=== PATIENT | male | born 1990 | race Caucasian/White ===

== ENCOUNTER 2016-11-26 07:04 | Emergency (ER) | payer OTHER, MEDICAID ==
[~2016-11-26] VITALS: Ht 188 cm; Wt 97.5 kg
[~2016-11-26 07:04] MED LIST: DIPH50TA9 PO; ESCI10TA53 PO; LAMO100T44 PO; PALI3TAB3 PO
[2016-11-26 07:35] VITALS: BP 162/110
== END 2016-11-26 07:55 | disposition home or self-care (01) ==
LOC: EDBD 07:04 → ER 07:04 → EDUNIT# 07:04 → ER 07:55
DX: F31.9 Bipolar disorder, unspecified (principal); F20.9 Schizophrenia, unspecified; G47.00 Insomnia, unspecified; I10 Essential (primary) hypertension

== ENCOUNTER 2016-11-26 10:35 | Emergency (ER) | payer OTHER, MEDICAID ==
[~2016-11-26] VITALS: Ht 182.9 cm; Wt 90.7 kg
[2016-11-26 10:44] VITALS: BP 148/86
== END 2016-11-26 12:44 | disposition home or self-care (01) ==
LOC: ER 10:35 → EDBD 10:35 → EDUNIT# 10:35 → ER 12:44
DX: F25.9 Schizoaffective disorder, unspecified (principal); I10 Essential (primary) hypertension; Z88.1 Allergy status to other antibiotic agents; F31.9 Bipolar disorder, unspecified

== ENCOUNTER 2017-01-12 23:54 | Emergency (ER) | payer OTHER, MEDICAID ==
[~2017-01-12] VITALS: Ht 182.9 cm; Wt 90.7 kg
[2017-01-13 00:49] VITALS: BP 122/89
[2017-01-13 01:24] LABS: Basophils # (auto) 0.1 uL; Basophils % (auto) 0.9 % (0.0-2.0); Eosinophils # (auto) 0.3 uL; Eosinophils % (auto) 1.8 % (0.0-7.0); Hematocrit 45.8 % (41.0-53.0); Hemoglobin 15.6 g/dL (13.5-17.5); Lymphocytes % (auto) 26.9 % (10.0-50.0); Mean Corpuscular Volume 88.3 fL (80.0-100.0); Mean Platelet Volume 7.4 fL (6.9-10.8); Monocytes # (auto) 1.5 uL; Monocytes % (auto) 10.2 % (0.0-12.0); Neutrophils % (auto) 60.2 % (37.0-80.0); Platelet Count (auto) 302 10^3/uL (140-450); Red Cell Distribution Width 13.1 % (11.8-14.3); White Blood Cell 14.9 10^3/uL (4.4-10.8)
[2017-01-13 01:41] LABS: Acetaminophen < 2.0 ug/mL (10-30); BUN/Creatinine Ratio 5.1; Calcium 8.4 mg/dL (8.5-10.1); Potassium 3.5 mmol/L (3.5-5.1); Salicylate < 1.7 mg/dL (2.8-20.0)
[2017-01-13 01:44] LABS: Bilirubin, Total 0.5 mg/dL (0.2-1.0)
[2017-01-13 02:15] LABS: Urine RBC None Seen /hpf (0 - 3)
[2017-01-13 02:33] LABS: Urine Bilirubin Negative (Negative); Urine Blood Negative /uL (Negative); Urine Color Yellow (Yellow); Urine Glucose Normal (Normal); Urine Ketone TRACE (Negative); Urine Nitrite Negative (Negative); Urine Urobilinogen Normal (Negative); Urine pH 5.5 (5.0-8.0)
[2017-01-14] MEDS ORDERED: TRAZ100T2 PO (15:40)
[2017-01-14] MEDS ORDERED: OLAN20TA13 PO (15:40)
[2017-01-14] MEDS ORDERED: ESCI10TA PO (15:40)
== END 2017-01-13 02:18 | disposition left against medical advice (07) ==
LOC: ER 23:56
DX: F41.9 Anxiety disorder, unspecified (principal); F32.9 Major depressive disorder, single episode, unspecified; Z53.21 Procedure and treatment not carried out due to patient leaving prior to being seen by health care provider
CPT/HCPCS: 36415; 80053; 80307; 80320; 80329; 81001; 85025

== ENCOUNTER 2017-01-13 04:08 | Emergency (ER) | payer OTHER, MEDICAID ==
[~2017-01-13] VITALS: Ht 182.9 cm; Wt 90.7 kg
[2017-01-13 05:57] VITALS: BP 115/60
[2017-01-13 07:35] LABS: Basophils # (auto) 0.1 uL; Eosinophils # (auto) 0.5 uL; Hematocrit 42.7 % (41.0-53.0); Hemoglobin 14.5 g/dL (13.5-17.5); Lymphocytes # (auto) 2.9 uL; Lymphocytes % (auto) 22.8 % (10.0-50.0); Mean Corpuscular Hemoglobin 29.6 pg (28.0-32.0); Mean Corpuscular Volume 87.1 fL (80.0-100.0); Mean Platelet Volume 7.2 fL (6.9-10.8); Monocytes # (auto) 1.4 uL; Monocytes % (auto) 11.1 % (0.0-12.0); Neutrophils # (auto) 7.7 uL; Neutrophils % (auto) 61.1 % (37.0-80.0); Platelet Count (auto) 274 10^3/uL (140-450); Red Cell Distribution Width 13.1 % (11.8-14.3); White Blood Cell 12.6 10^3/uL (4.4-10.8)
[2017-01-13 07:56] LABS: Albumin 3.6 g/dL (3.4-5.0); Anion Gap 9 (5-15); Aspartate Aminotransferase 28 U/L (15-37); BUN/Creatinine Ratio 6.2; Blood Urea Nitrogen 6 mg/dL (7-18); Calcium 8.1 mg/dL (8.5-10.1); Carbon Dioxide 24 mmol/L (21-32); Chloride 106 mmol/L (98-107); GFR African American 121 mL/min; GFR Non-African American 100 mL/min; Glucose 95 mg/dL (74-106); Potassium 3.8 mmol/L (3.5-5.1); Sodium 139 mmol/L (136-145)
[2017-01-13 08:01] LABS: Alkaline Phosphatase 83 U/L (45-117); Bilirubin, Total 0.5 mg/dL (0.2-1.0); Total Protein 7.2 g/dL (6.4-8.2)
[2017-01-13 08:43] LABS: Urine Bilirubin Negative (Negative); Urine Blood Negative /uL (Negative); Urine Color Yellow (Yellow); Urine Glucose Normal (Normal); Urine Ketone TRACE (Negative); Urine Mucus FEW (None Seen); Urine Nitrite Negative (Negative); Urine RBC 1 /hpf (0 - 3); Urine Squamous Epithelial Cell FEW /hpf (<5); Urine Urobilinogen Normal (Negative); Urine pH 5.5 (5.0-8.0)
[2017-01-14] MEDS ORDERED: ESCI10TA PO (15:40)
[2017-01-14] MEDS ORDERED: TRAZ100T2 PO (15:40)
[2017-01-14] MEDS ORDERED: OLAN20TA13 PO (15:40)
== END 2017-01-13 08:48 | disposition left against medical advice (07) ==
LOC: ER 04:10
DX: F41.9 Anxiety disorder, unspecified (principal); M79.1 Myalgia; I10 Essential (primary) hypertension; F31.9 Bipolar disorder, unspecified; F20.9 Schizophrenia, unspecified; F17.210 Nicotine dependence, cigarettes, uncomplicated
CPT/HCPCS: 36415; 80053; 81001; 84484; 85025

== ENCOUNTER 2017-01-14 14:49 | Emergency (ER) | payer OTHER, MEDICAID ==
[2017-01-14] MEDS ORDERED: HALOPERIDOL LACTATE 5 MG/ML INJ VIAL IM ONE (15:15)
[2017-01-14] MEDS ORDERED: LORazepam 2MG/ML-1ML VIAL IV ONE (15:15)
[2017-01-14] MEDS ORDERED: diphenhdrAMINE HCL 50 MG/1 ML VL IV ONE (15:15)
[2017-01-14] MEDS ORDERED: ESCI10TA PO (15:40)
[2017-01-14] MEDS ORDERED: OLAN20TA13 PO (15:40)
[2017-01-14] MEDS ORDERED: TRAZ100T2 PO (15:40)
[2017-01-14 15:58] LABS: Basophils # (auto) 0.2 uL; Eosinophils # (auto) 0.2 uL; Eosinophils % (auto) 1.3 % (0.0-7.0); Hematocrit 45.5 % (41.0-53.0); Hemoglobin 15.1 g/dL (13.5-17.5); Lymphocytes # (auto) 3.5 uL; Lymphocytes % (auto) 19.8 % (10.0-50.0); Mean Corpuscular Hemoglobin 29.4 pg (28.0-32.0); Mean Corpuscular Hgb Conc. 33.2 g/dL (32.0-36.0); Mean Corpuscular Volume 88.6 fL (80.0-100.0); Mean Platelet Volume 7.4 fL (6.9-10.8); Monocytes # (auto) 1.7 uL; Monocytes % (auto) 9.7 % (0.0-12.0); Neutrophils % (auto) 68.2 % (37.0-80.0); Nucleated Red Blood Cells % 0.1 %; Platelet Count (auto) 289 10^3/uL (140-450); Red Cell Distribution Width 13.2 % (11.8-14.3); White Blood Cell 17.6 10^3/uL (4.4-10.8)
[2017-01-14 16:09] LABS: Albumin 4.2 g/dL (3.4-5.0); Alkaline Phosphatase 93 U/L (45-117); Anion Gap 11 (5-15); Aspartate Aminotransferase 31 U/L (15-37); BUN/Creatinine Ratio 9.5; Bilirubin, Total 0.7 mg/dL (0.2-1.0); Blood Urea Nitrogen 12 mg/dL (7-18); Calcium 8.3 mg/dL (8.5-10.1); Carbon Dioxide 22 mmol/L (21-32); Chloride 108 mmol/L (98-107); GFR African American 90 mL/min; GFR Non-African American 74 mL/min; Glucose 102 mg/dL (74-106); Magnesium 2.5 mg/dL (1.6-2.6); Potassium 3.4 mmol/L (3.5-5.1); Sodium 141 mmol/L (136-145); Total Protein 7.7 g/dL (6.4-8.2)
[2017-01-14 16:16] LABS: Acetaminophen 36.6 ug/mL (10-30); Salicylate 2.2 mg/dL (2.8-20.0)
[2017-01-14 22:10] LABS: Urine RBC None Seen /hpf (0 - 3)
[2017-01-14 22:37] LABS: Albumin 3.6 g/dL (3.4-5.0); BUN/Creatinine Ratio 10.5; Calcium 8.3 mg/dL (8.5-10.1); Potassium 3.4 mmol/L (3.5-5.1)
[2017-01-14 22:38] LABS: Urine Bilirubin Negative (Negative); Urine Blood Negative /uL (Negative); Urine Color Yellow (Yellow); Urine Glucose Normal (Normal); Urine Ketone Negative (Negative); Urine Nitrite Negative (Negative); Urine Urobilinogen Normal (Negative); Urine pH 5.5 (5.0-8.0)
[2017-01-14 22:40] LABS: Bilirubin, Total 0.9 mg/dL (0.2-1.0); Total Protein 6.8 g/dL (6.4-8.2)
[2017-01-14 23:34] VITALS: BP 131/57
== END 2017-01-14 23:34 | disposition home or self-care (01) ==
LOC: ER 14:49 → EDBD 14:49 → ER 23:34
DX: G92 Toxic encephalopathy (principal); I10 Essential (primary) hypertension; Z88.0 Allergy status to penicillin; F17.210 Nicotine dependence, cigarettes, uncomplicated
CPT/HCPCS: 36415; 80053; 80307; 80320; 80329; 81001; 83735; 85025; 94761; 96372; 96374; 96375; 99285; J1200; J1630

== ENCOUNTER 2017-01-15 19:50 | Emergency (ER) | payer OTHER, MEDICAID ==
[~2017-01-15] VITALS: Ht 180.3 cm; Wt 99.8 kg
[~2017-01-15 19:50] MED LIST changes: +ESCI10TA PO; +OLAN20TA13 PO; +TRAZ100T2 PO
[2017-01-15 21:05] VITALS: BP 126/70
== END 2017-01-15 22:05 | disposition left against medical advice (07) ==
LOC: EDBD 19:50 → ER 20:08
DX: Z04.8 Encounter for examination and observation for other specified reasons (principal); Z53.21 Procedure and treatment not carried out due to patient leaving prior to being seen by health care provider

== ENCOUNTER 2017-04-03 12:12 | Inpatient (IN) | payer OTHER, MEDICAID ==
[~2017-04-03] VITALS: Ht 175.3 cm; Wt 90.7 kg
[2017-04-03] MEDS ORDERED: SODIUM CHLORIDE 0.9% 1,000 ML IVB ONE (12:22)
[2017-04-03 12:53] LABS: Basophils # (auto) 0.1 uL; Basophils % (auto) 0.7 % (0.0-2.0); Eosinophils # (auto) 0.1 uL; Eosinophils % (auto) 1.4 % (0.0-7.0); Hematocrit 48.6 % (41.0-53.0); Hemoglobin 16.5 g/dL (13.5-17.5); Lymphocytes # (auto) 2.4 uL; Lymphocytes % (auto) 24.7 % (10.0-50.0); Mean Corpuscular Hemoglobin 30.5 pg (28.0-32.0); Mean Corpuscular Volume 89.8 fL (80.0-100.0); Monocytes # (auto) 0.6 uL; Monocytes % (auto) 6.5 % (0.0-12.0); Neutrophils # (auto) 6.6 uL; Neutrophils % (auto) 66.7 % (37.0-80.0); Nucleated Red Blood Cells % 0.2 %; Platelet Count (auto) 342 10^3/uL (140-450); Red Blood Cells 5.41 10^6/uL (4.5-5.90); Red Cell Distribution Width 13.8 % (11.8-14.3); White Blood Cell 9.9 10^3/uL (4.4-10.8)
[2017-04-03 13:07] LABS: Albumin 4.3 g/dL (3.4-5.0); BUN/Creatinine Ratio 12.4; Calcium 8.6 mg/dL (8.5-10.1); Magnesium 2.3 mg/dL (1.6-2.6); Potassium 3.6 mmol/L (3.5-5.1)
[2017-04-03 13:10] LABS: Bilirubin, Total 0.3 mg/dL (0.2-1.0); Total Protein 8.2 g/dL (6.4-8.2)
[2017-04-03] MEDS ORDERED: LORazepam 2MG/ML-1ML VIAL IV ONE ×2 (16:00→17:00)
[2017-04-03] MEDS ORDERED: diphenhdrAMINE HCL 50 MG/1 ML VL IV ONE (16:00)
[2017-04-03] MEDS ORDERED: THIAMINE HCL 100 MG/ML 2ML VIAL IV ONE (17:00)
[2017-04-03] MEDS ORDERED: DEXTROSE (50%) 50ML SYRG IV PRN (17:00)
[2017-04-03] MEDS ORDERED: LORazepam 2MG/ML-1ML VIAL IV PRN (17:00)
[2017-04-03] MEDS ORDERED: PROMETHAZINE HCL 25 MG/ML 1ML IV PRN (17:00)
[2017-04-03] MEDS ORDERED: chlordiazePOXIDE HCL 25 MG CAP PO PRN (17:00)
[2017-04-03] MEDS ORDERED: TEMAZEPAM 15 MG CAP PO PRN (17:00)
[2017-04-03] MEDS ORDERED: MORPHINE SULFATE 4 MG/ML SYR/VIAL IV PRN ×2 (17:00)
[2017-04-03] MEDS ORDERED: NITROGLYCERIN 0.4 MG SL TAB SL PRN (17:00)
[2017-04-03] MEDS ORDERED: ACETAMINOPHEN 500 MG TAB PO PRN (17:00)
[2017-04-03] MEDS ORDERED: HYDROcodone-ACET 5/325MG TAB PO PRN (17:00)
[2017-04-03 17:25] LABS: Amphetamine Screen, Urine NEGATIVE (NEGATIVE); Barbiturate Scree,Urine NEGATIVE (NEGATIVE); Benzodiazephine Screen, Urine NEGATIVE (NEGATIVE); Cannabinoid Screen, Urine NEGATIVE (NEGATIVE); Cocaine Screen, Urine NEGATIVE (NEGATIVE); Opiate Scree,Urine NEGATIVE (NEGATIVE); Phencyclidine Screen, Urine POSITIVE (NEGATIVE)
[2017-04-03] MEDS: chlordiazePOXIDE HCL 5 MG CAP PO SCH (17:40)
[2017-04-03] MEDS: ACCU-CHEK COMFORT CURVE STRIP VI SCH ×3 (18:26→22:00)
[2017-04-04] MEDS: chlordiazePOXIDE HCL 5 MG CAP PO SCH ×2 (00:34→06:29)
[2017-04-04] MEDS: ACCU-CHEK COMFORT CURVE STRIP VI SCH ×4 (02:00→06:29)
[2017-04-04 03:55] LABS: Folate (Folic Acid) 13.82 ng/mL (5.38-24)
[2017-04-04 07:25] VITALS: BP 134/69
[2017-04-04] MEDS ORDERED: THIAMINE HCL 100 MG/ML 2ML VIAL IV SCH (10:00)
== END 2017-04-04 10:00 | disposition left against medical advice (07) | DRG 917 ==
LOC: ER 12:12 → EDUNIT# 12:12 → EDBD 12:12 → TELE 12:13 → TELE-CENTR 04-04 07:40
PROVIDERS: ADMIT Internal Medicine; ATTEND Internal Medicine
DX: T51.0X1A Toxic effect of ethanol, accidental (unintentional), initial encounter (principal); G92 Toxic encephalopathy; F10.129 Alcohol abuse with intoxication, unspecified; F20.9 Schizophrenia, unspecified; F17.210 Nicotine dependence, cigarettes, uncomplicated; G47.00 Insomnia, unspecified; R00.0 Tachycardia, unspecified; Z53.21 Procedure and treatment not carried out due to patient leaving prior to being seen by health care provider; T40.995A Adverse effect of other psychodysleptics [hallucinogens], initial encounter; F41.9 Anxiety disorder, unspecified; I10 Essential (primary) hypertension; Y92.481 Parking lot as the place of occurrence of the external cause; Z88.1 Allergy status to other antibiotic agents; Z79.899 Other long term (current) drug therapy
CPT/HCPCS: 36415; 70450; 80053; 80307; 80320; 82550; 82607; 82746; 82962; 83036; 83735; 84443; 85025; 85652; 93005; 94761; 96361; 96374; 96375

== ENCOUNTER 2022-02-09 23:00 | Emergency (ER) | payer OTHER, MEDICAID ==
[~2022-02-09] VITALS: Ht 182.9 cm; Wt 79.5 kg
[~2022-02-09 23:00] MED LIST changes: +ESCI-28 PO; -ESCI10TA53 PO; +OLAN20TA PO; -OLAN20TA13 PO; +PALI3TAB PO; -PALI3TAB3 PO; -TRAZ100T2 PO; +TRAZ100T3 PO
[2022-02-09 23:10] VITALS: BP 162/80
[2022-02-10] MEDS ORDERED: BACDST PO (00:29)
== END 2022-02-10 01:17 | disposition home or self-care (01) ==
LOC: ER 23:00
DX: L03.116 Cellulitis of left lower limb (principal); L03.115 Cellulitis of right lower limb; T69.022A Immersion foot, left foot, initial encounter; I10 Essential (primary) hypertension; F17.210 Nicotine dependence, cigarettes, uncomplicated; F12.10 Cannabis abuse, uncomplicated

== ENCOUNTER → 2022-04-15 | Emergency (ER) | payer OTHER, MEDICAID ==
[~2022-04-15] MED LIST changes: +BACDST PO
== END | disposition left against medical advice (07) ==
LOC: ER 23:32
DX: M25.552 Pain in left hip (principal); Z53.21 Procedure and treatment not carried out due to patient leaving prior to being seen by health care provider